=== PATIENT | female | born 1960 | race Caucasian/White ===

== ENCOUNTER → 2018-02-10 10:53 | Outpatient (CLI) | payer MEDICARE, MEDICAID, SELFPAY ==
[2018-02-10 11:19] LABS: Absolute Lymphocyte Count 1.66 X10^3/ul (0.83-4.51); Absolute Neutrophil Count 3.4 X10^3/uL (2.0-7.7); Basophil# 0.01 X10^3/uL; Basophil% 0.2 % (0-1); Eosinophil# 0.13 X10^3/uL; Eosinophils% 2.2 % (0-5); Hematocrit 41.6 % (37-47); Hemoglobin 14.4 g/dl (12.0-15.0); Lymphocyte # 1.66 X10^3/ul (4.0); Lymphocyte % 28.6 % (19-41); Mean Corp Hgb Conc 34.6 g/gl (32-36); Mean Corpuscular Hgb 30.8 pg (27.0-32.0); Mean Corpuscular Volume 89.1 fL (81-99); Mean Platelet Vol. 10.5 fl (6.2-12.0); Monocyte# 0.56 X10^3/uL; Monocyte% 9.7 % (0-10); Neutrophil # 3.43 X10^3/uL (2.7-7.7); Neutrophil % 59.1 % (47-70); Platelet Count 283 K/mm3 (150-450); RBC Distribution Width CV 13.6 % (11.6-14.6); Red Blood Count 4.67 M/mm3 (4.2-5.4); White Blood Count 5.8 K/mm3 (4.4-11.0)
[2018-02-10 11:20] LABS: POSITIVE COUNT NO; POSITIVE DIFFERENTIAL NO; POSITIVE MORPHOLOGY NO
[2018-02-10 11:51] LABS: Anion Gap 6 (5-15); BUN 13 mg/dL (7-18); BUN/Creat Ratio 18.4 RATIO (10-20); Calcium,Total 9.6 mg/dL (8.5-10.1); Chloride 104 mmol/L (98-107); Creatinine, Serum 0.71 mg/dL (0.55-1.02); EST Glomerular Filtration Rate 90 mL/min (>60); Est Glom Filt Rate - Afr Amer 109 mL/min (>60); Glucose 129 mg/dL (74-106); Potassium 4.2 mmol/L (3.5-5.1); Sodium Level 140 mmol/L (136-145); Thyroid Stim Hormone (TSH) 0.02 uIU/mL (0.358-3.74)
== END ==
PROVIDERS: Family Provider Family Medicine; PCP Family Medicine; Visit Provider Internal Medicine Cardiovascular Disease
DX: I42.8 Other cardiomyopathies (principal); I10 Essential (primary) hypertension
CPT/HCPCS: 36415; 80048; 84443; 85025

== ENCOUNTER → 2018-02-12 08:54 | Outpatient (CLI) | payer MEDICARE, MEDICAID, SELFPAY ==
--- NOTE | 2018-02-11 15:28 | ECHOCS_ITS ---
Version 2 Reason For Study: Dyspnea/SOB Procedure This was a 2D Doppler, Color Flow transthoracic echocardiogram. Exam performed in department. Left Ventricle Normal LV size. Left ventricular systolic function is normal. The estimated ejection fraction is 20 %. Transmitral diastolic flow velocities suggest severe (stage 3) diastolic dysfunction. There is severe global hypokinesis of the left ventricle. Right Ventricle Normal RV size. Normal systolic function. Atria Normal left atrium. Normal right atrium. Mitral Valve Mild diffuse mitral valve thickening. Mild (1+) eccentric mitral valve insufficiency. Tricuspid Valve Normal tricuspid valve. Mild tricuspid valve insufficiency. Aortic Valve Normal aortic valve. Trisinus/trileaflet aortic valve. Pulmonic Valve Normal pulmonic valve. Great Vessels Normal aortic root. The pulmonary artery is normal size. Normal inferior vena cava. Pericardium/Pleural No pericardial effusion. Medication Definity0.4ml given slow IV push to enhance endocardial definition. MMode/2D Measurements & Calculations LVIDd: 5.6 cm IVSd: 0.92 cm Ao root diam: 2.8 cm LVIDs: 5.2 cm LVPWd: 0.91 cm RVDd: 3.4 cm FS: 7.7 % LAV(MOD-bp): 52.0 ml LAV(MOD-bp) Indexed: 29.1 ml/m2 LA A4 area: 18.8 cm2 RA A4 area: 8.5 cm2 LAV(MOD-sp2): 50.3 ml LAV(MOD-sp4): 52.2 ml Doppler Measurements & Calculations MV E max lei: 68.8 cm/sec Lat Peak E' Lei: 7.0 cm/sec Med Peak E' Lei: 3.7 cm/sec MV A max lei: 39.7 cm/sec E/E' lat: 9.9 E/E' med: 18.4 MV E/A: 1.7 Ao V2 max: 102.9 cm/sec LV V1 max: 85.0 cm/sec PA V2 max: 73.8 cm/sec Ao max P.2 mmHg LV V1 max P.5 mmHg Ao V2 mean: 83.9 cm/sec Ao mean P.9 mmHg Ao V2 VTI: 20.0 cm TR max lei: 196.8 cm/sec TR max P.5 mmHg Interpretation Summary Normal LV size. Left ventricular systolic function is normal. The estimated ejection fraction is 20 %. Transmitral diastolic flow velocities suggest severe (stage 3) diastolic dysfunction Contrast injection was performed. Compared to prior study, there is no significant change. Ordering Physician: Babatunde Powers Referring Physician: Shashi Amaro Performed By: Laura Dominguez, RADHA, RVT
== END ==
PROVIDERS: Family Provider Family Medicine; PCP Family Medicine; Visit Provider Internal Medicine Cardiovascular Disease
DX: I95.9 Hypotension, unspecified (principal)
CPT/HCPCS: 93306; Q9957; A4216; C8929

== ENCOUNTER → 2018-03-16 09:43 | Outpatient (CLI) | payer MEDICARE, MEDICAID, SELFPAY ==
[2018-03-16 09:56] LABS: Mucous, Urine 0 SEEN /hpf (<or=2+)
[2018-03-16 11:24] LABS: Hematocrit 39.7 % (37-47); Hemoglobin 13.4 g/dl (12.0-15.0); Mean Corp Hgb Conc 33.8 g/gl (32-36); Mean Corpuscular Hgb 30.4 pg (27.0-32.0); Mean Platelet Vol. 10.7 fl (6.2-12.0); Platelet Count 248 K/mm3 (150-450); RBC Distribution Width CV 13.5 % (11.6-14.6); RBC Distribution Width SD 44.5 fl (35.1-43.9); Red Blood Count 4.41 M/mm3 (4.2-5.4); White Blood Count 5.6 K/mm3 (4.4-11.0)
[2018-03-16 11:26] LABS: Scan Indicated on CBC? Y/N NO
[2018-03-16 11:32] LABS: Color, Urine Yellow (Yellow); Glucose, Dipstick Normal (Normal); Ketone-Dipstick Negative (Negative); Leukocyte Esterase-Dipstick 25 /ul (Negative); Nitrite-Dipstick Negative (Negative); Occult Blood-Urine Negative /ul (Negative); Protein-Dipstick Negative (Negative); Specific Gravity, Urine 1.015 (1.002-1.030); Urine Bilirubin Dipstick Negative (Negative); Urine Clarity Sl. Cloudy (Clear); Urine Urobilinogen Normal (Normal)
[2018-03-16 11:35] LABS: Prothrombin Time (Protime)PT. 13.4 SECONDS (11.7-14.9)
[2018-03-16 11:44] LABS: Bacteria RARE /hpf (None Seen); Red Blood Cells-Urine 0-5 SEEN /hpf (0-5); Squamous Epithelial Cells - UA 0-5 SEEN /hpf (5-10); White Blood Cells 0-5 SEEN /hpf (0-5)
[2018-03-16 11:56] LABS: Anion Gap 8 (5-15); BUN 18 mg/dL (7-18); BUN/Creat Ratio 28.1 RATIO (10-20); Calcium,Total 9.3 mg/dL (8.5-10.1); Chloride 104 mmol/L (98-107); Creatinine, Serum 0.64 mg/dL (0.55-1.02); EST Glomerular Filtration Rate 100 mL/min (>60); Est Glom Filt Rate - Afr Amer 122 mL/min (>60); Glucose 97 mg/dL (74-106); Potassium 3.9 mmol/L (3.5-5.1); Sodium Level 143 mmol/L (136-145)
== END ==
PROVIDERS: Family Provider Family Medicine; PCP Family Medicine; Visit Provider Internal Medicine Cardiovascular Disease
DX: I44.7 Left bundle-branch block, unspecified (principal); I42.8 Other cardiomyopathies; I50.23 Acute on chronic systolic (congestive) heart failure; R57.0 Cardiogenic shock
CPT/HCPCS: 36415; 80048; 81001; 85027; 85610

== ENCOUNTER 2018-05-31 10:30 | Outpatient (RCR) | payer MEDICARE, MEDICAID, SELFPAY ==
--- NOTE | 2018-04-28 12:05 | HP.SP.AD_ITS ---
History - History Date of Eval: 04/27/18 Medical Diagnosis (from RX): LEFT VOCAL CORD PARALYSIS Date of Onset of Diagnosis: 2014 Previous speech therapy: No Other Relevant Medical History/Diagnoses/Surgery: Non- Hodgkins Lymphoma 2014 with 28 chemotherapy treatments, Pnuemonia November 2017, Heart failure and placement of CRD device. She has a medialization approximately one year ago for left vocal cord paralysis with good results. She then was intubated and now is hoarse again. Smoking Status: Never smoker Hx Smoking: No Hx Tobacco Use: No Hx Smoking Exposure: No - Pain Is pain an issue with your current prescribed condition?: No - Personal Occupation: Unemployed due to health Right Hearing Abillity: Normal Left Hearing Abillity: Normal Visual Assistive Devices: Glasses Patients Living Arrangements: Alone Patient Allergies - Allergies Allergies adhesive tape Allergy (Severe, Verified 02/10/18 09:25) Other leaves hernadez retirement, and pulls skin off. codeine Allergy (Verified 02/10/18 09:25) Hives latex Allergy (Verified 02/10/18 09:25) Rash Voice Handicap Index (VHI) - VHI VHI Administered: Yes VHI: Patient completed the Voice Handicap Index, which is a 30 item, self administered questionnaire that asks an individual to describe their voice and the effects of their voice on their life. Three subscales cover the areas of functional, emotional, and physical aspects of the voice disorders. Points from the questions can be combined to assign a total score, or they can be combined by subscale. Results for the VHI are as follows: Date: 04/28/18 - VHI Test Functional: Candy had a total score of 37 which is severe. She has limited use of her voice through the phone and stated that she has to text to communicate. She is unable to use a drive through. Physical: Candy had a total score of 33 which places her in the severe range. She has a difficult time moderating her air flow to produce a good sound. Her voice varies throughout the day as well as as each day can vary. She often has to strain to be heard and this puts extra stress on her vocal cords. Emotional: Candy spends most of her days quiet as she lives alone and currently is not working due to illness. She stated that her voice is a problem as she is not able to communicate with family and friends which creates increased isolation. Total Severity Rating: Severe (61-120) Subjective Clinical Impression - Adult Clinical Impression Hoarseness: excessive 'noise' in the signal creating an unpleasant, rough vocal quality: Present Harshness: irregular vocal fold vibrations creating a 'raspy' or unmusical tone ; a combination of hoarseness and breathiness: Present - Non-Phonatory Behaviors/Respiration Reduced loudness or vocal weakness: Present Limited breath support for speech: Present Objective Voice - Objective data Objective Data: Objective data: Sound pressure level (SPL acoustic correlation of vocal loudness) was measured with a sound level meter at a distance of 40 cm from the patient's mouth. Average conversational loudness is 70-80 dB and sustained phonation duration is 15 to 20 seconds for a typical adult. Vocal Intensity at Conversational Level (dB SPL): 58.5 Plan - Plan Plan: Speech therapy is warranted for a severe voice disorder characterized by harshness and decreased communication. - Recommendations Treatment Warranted: Yes - Frequency Frequency: 1x/Week Visits in this POC: 8 - Prognosis Prognosis: Fair - Goals that are Established: Determination:: Goals will be added/modified as deemed necessary and appropriate. Therapy will be discontinued when results of re-evaluation indicate therapy is no longer needed or lack of progress has been documented. - Goal #1-5 Goal #1: Candy will complete vocal cord adduction exercises independently on 4/ 5 trials on 4 consecutive sessions. Goal #2: Candy will sustain phonation for 8-10 seconds on 4/5 trials on 4 consecutive sessions to allow for increased respiratory support during speaking. Education - Patient has Indicated that the Following Identified Educational Needs: None The Patient has indicated that they have no educational or learning abilities that may effect their care.: Yes - Patient Instruction Patient Education: Diagnosis, Treatment Plan Person Taught: Patient Teaching Method: Discussion Response to teaching: Verbalize understanding
--- NOTE | 2018-07-20 08:36 | HP.SP.DC_ITS ---
ST Discharge Summary - Discharged: Discharge: Candy Mancera was discharged from [facility] speech therapy on 05-31-18. She was discharged due to lack of progress on her goals. She was able to independently complete vocal cord adduction exercises however they did not make a change in her functional vocal quality. Candy was not able sustain phonation for 8-10 seconds for her second goal. She did not progress past 4 seconds. Candy was accepting of discharge as she felt she made no progress also. A copy of this discharge will be sent to her referring physician.
== END 2018-05-31 19:00 | disposition home or self-care (01) ==
LOC: SP 10:30
PROVIDERS: Family Provider Family Medicine; PCP Family Medicine
DX: R49.0 Dysphonia (principal); J38.01 Paralysis of vocal cords and larynx, unilateral
CPT/HCPCS: 92507; 92524

== ENCOUNTER → 2018-08-30 10:00 | Outpatient (CLI) | payer MEDICARE, MEDICAID, SELFPAY ==
[2018-08-26 09:19] VITALS: BMI 29.9
--- NOTE | 2018-08-30 10:07 | ECHODONC_ITS ---
Reason For Study: SOB Procedure This was a 2D Doppler, Color Flow transthoracic echocardiogram. Myocardial strain analysis was performed in this exam to aid in the assessment of cardiac function. Exam performed in department. Left Ventricle Normal LV size. The estimated ejection fraction is 45 %. The global longitudinal strain is moderately abnormal. The global longitudinal strain = -12.4% (abnormal). No regional wall motion abnormalities noted. Right Ventricle Normal RV size. ICD or pacer leads identified within the right ventricle. Normal systolic function. Atria Normal left atrium. Normal right atrium. Mitral Valve Normal mitral valve. Tricuspid Valve Normal tricuspid valve. Mild tricuspid valve insufficiency. Pulmonary artery systolic pressure is 26 mmHg. Aortic Valve Normal aortic valve. Trisinus/trileaflet aortic valve. Pulmonic Valve Normal pulmonic valve. Great Vessels Normal aortic root. The pulmonary artery is normal size. Normal inferior vena cava. Pericardium/Pleural No pericardial effusion. MMode/2D Measurements & Calculations LVIDd: 4.8 cm IVSd: 0.94 cm Ao root diam: 2.7 cm LVIDs: 3.9 cm LVPWd: 0.86 cm RVDd: 2.7 cm FS: 19.5 % LAV(MOD-bp): 38.0 ml EDV(MOD-sp4): 92.4 ml EDV(MOD-sp2): 78.6 ml LAV(MOD-bp) Indexed: 21.8 ml/m2 ESV(MOD-sp4): 50.3 ml EF(MOD-sp2): 42.1 % LAV(MOD-sp2): 40.4 ml EF(MOD-sp4): 45.5 % LAV(MOD-sp4): 33.3 ml SV(MOD-sp4): 42.1 ml SV(MOD-sp2): 33.1 ml LA A4 area: 13.1 cm2 LA dimension(2D): 3.8 cm RA A4 area: 9.4 cm2 Doppler Measurements & Calculations MV E max lei: 49.6 cm/sec Lat Peak E' Lei: 3.2 cm/sec Med Peak E' Lei: 3.2 cm/sec MV A max lei: 63.8 cm/sec E/E' lat: 15.3 E/E' med: 15.6 MV E/A: 0.78 Ao V2 max: 124.5 cm/sec LV V1 max: 98.3 cm/sec PA V2 max: 98.0 cm/sec Ao max P.2 mmHg LV V1 max P.9 mmHg TR max lei: 235.3 cm/sec TR max P.3 mmHg Interpretation Summary Normal LV size. The estimated ejection fraction is 45 %. The global longitudinal strain is moderately abnormal. The global longitudinal strain = -12.4% (abnormal). Pulmonary artery systolic pressure is 26 mmHg. Compared to previous study, the left ventricular systolic function has improved.. Ordering Physician: Babatunde Powers Referring Physician: Papi Amaro M.D. Performed By: Zaida Moore RDCS
--- NOTE | 2018-08-30 11:00 | RAD_ITS ---
STUDY: X-RAY - LEFT RADIUS AND ULNA REASON FOR EXAM: Female, 58 years old. Left forearm pain TECHNIQUE: 2 view(s) of the forearm. COMPARISON: None. FINDINGS: There is no demonstrated soft tissue swelling. Normal visualized radius. Normal visualized ulna. Scaphotrapezial osteoarthritis. RAD/Forearm 2 Views IMPRESSION: No acute osseous abnormality is evident involving the forearm. Electronically Signed: Wilder Orr MD at 11:32 EST Tel , Service support ,
== END ==
PROVIDERS: Family Provider Family Medicine; PCP Family Medicine; Referring Provider Internal Medicine Cardiovascular Disease; Visit Provider Internal Medicine Cardiovascular Disease
DX: R06.00 Dyspnea, unspecified (principal); R06.02 Shortness of breath; I42.8 Other cardiomyopathies; Z85.79 Personal history of other malignant neoplasms of lymphoid, hematopoietic and related tissues
CPT/HCPCS: 0399T; 73090; 93306

== ENCOUNTER → 2018-11-18 11:13 | Outpatient (CLI) | payer MEDICARE, MEDICAID, SELFPAY ==
[2018-11-18 10:44] VITALS: BMI 30.3
[2018-11-18 12:38] LABS: ALB/GLOB Ratio 1.2 RATIO (0.9-2.4); AST(SGOT) 24 U/L (15-37); Alanine Aminotransfer ALT/SGPT 40 U/L (13-56); Alkaline Phosphatase 65 U/L (45-117); Anion Gap 7 (5-15); BUN 14 mg/dL (7-18); BUN/Creat Ratio 19.7 RATIO (10-20); Calcium,Total 9.5 mg/dL (8.5-10.1); Chloride 103 mmol/L (98-107); Creatinine, Serum 0.71 mg/dL (0.55-1.02); EST Glomerular Filtration Rate 89 mL/min (>60); Est Glom Filt Rate - Afr Amer 107 mL/min (>60); Globulin 3.4 g/dL (2.2-4.2); Glucose 100 mg/dL (74-106); Potassium 4.3 mmol/L (3.5-5.1); Protein, Total 7.4 g/dL (6.4-8.2); Sodium Level 140 mmol/L (136-145); Thyroid Stim Hormone (TSH) 0.01 uIU/mL (0.358-3.74)
== END ==
PROVIDERS: Family Provider Family Medicine; PCP Family Medicine; Visit Provider Family Medicine
DX: I10 Essential (primary) hypertension (principal); F41.1 Generalized anxiety disorder
CPT/HCPCS: 36415; 80053; 84443

== ENCOUNTER 2019-06-24 08:14 | Day surgery (SDC) | payer MEDICARE, MEDICAID, SELFPAY ==
[2019-05-31 14:30] VITALS: BMI 30.7
--- NOTE | 2019-06-23 23:07 | PCM.HP.BLA ---
History and Physical Date of Admission: 06/24/19 HISTORY OF PRESENT ILLNESS 59 year old woman presents with a soft tissue mass left lateral forehead by eyebrow that has increased in size over the last several months. She denies trauma. She denies recent infection. She has some discomfort when the mass is bumped. She complains of intermittent headaches since the mass started enlarging. She presents at this time for further evaluation and treatment. PAST MEDICAL HISTORY Left bundle branch block Obesity (BMI 30.0-34.9) Cardiogenic shock Acute on chronic systolic (congestive) heart failure Non-ischemic cardiomyopathy Hypertension Anxiety and depression Frequent headaches History of allergic urticaria History of breast lump History of cancer History of pneumonia Kidney failure Neuropathy Thyroid disease Chronic bronchitis GERD (gastroesophageal reflux disease) Hypothyroidism IBS (irritable bowel syndrome) Non-Hodgkin lymphoma PAST SURGICAL HISTORY Presence of biventricular implantable cardioverter-defibrillator (ICD) reversal of tubal ligation Bilateral cataracts left breast biopsy lymph node biopsy tubal ligation Paralyzed vocal cords ALLERGIES adhesive tape nickel codeine latex MEDICATIONS Multivitamins,Ther W-Minerals [Multivitamin With Minerals] albuterol sulfate albuterol sulfate HFA 90 mcg/actuation aerosol inhaler acetaminophen ER magnesium baclofen mecobalamin (vitamin B12) pyridoxine (vitamin B6) nitroglycerin levothyroxine pantoprazole amitriptyline sacubitril 24 mg-valsartan 26 mg lorazepam ondansetron carvedilol furosemide spironolactone polyethylene glycol FAMILY HISTORY Grandfather - Myocardial infarction Mother - Cancer, Hypertension, Ovarian cancer SOCIAL HISTORY Smoking Status: Never smoker alcohol intake: never substance use type: does not use REVIEW OF SYSTEMS General - Denies fever and weight loss. Has fatigue. Eyes - Denies cataracts. Has glaucoma. ENT - Denies nasal congestion and sore throat. Endocrine - Denies excessive thirst and urination. Has thyroid disease. Has heat and cold intolerance. Skin - Denies skin cancer. Has enlarging soft tissue mass left lateral forehead by eyebrow. Musculoskeletal - Has joint pain, joint stiffness, and back pain. Denies weakness of muscles and joints and arthritis. Neuro - Has headaches. Cardiovascular - Has chest pain and fatigue. Denies shortness of breath with exertion. Has pacemaker. Psych - Denies anxiety and depression. Respiratory - Denies chronic cough. Has shortness of breath. Gastrointestinal - Denies nausea, vomiting, diarrhea. Has constipation. Hematologic - Denies abnormal bruising and bleeding. Genitourinary - Denies hematuria. Has urinary frequency. PHYSICAL EXAMINATION General - Alert and Oriented. HEENT - PERRL. EOMI. Throat is clear. On the left lateral forehead by eyebrow is a soft tissue mass that measures 2 cm. It is mobile. No adherence to the overlying skin. He can raise his eyebrows symmetrically. No ulceration. Slight discomfort when palpated. No evidence of infection. Neck - Supple and nontender. No cervical adenopathy. No suspicious lesions noted. Lungs - Clear to auscultation. Heart - Regular rate and rhythm. Abdomen - Soft and nondistended. Extremities - FROM. No axillary adenopathy. Radial pulses are palpable. No suspicious lesions noted. Neuro - CN II-XII grossly intact. Psych - Normal mood and affect. ASSESSMENT 2 cm painful soft tissue mass left lateral forehead by eyebrow. PLAN Recommend excision of this painful soft tissue mass left lateral forehead by eyebrow and send it to Pathology for analysis to rule out carcinoma. Usually these soft tissue masses are submuscular in location. May need additional pain medication postop because of bruising on the muscle. Will apply a compression dressing to minimize bleeding issues postop. Surgery will be done on an outpatient basis under local anesthesia and IV sedation. Patient was informed of the risks and complications of the procedure including alternatives to surgery. These were discussed with the patient personally. Patient voices understanding and wishes to proceed. Some of the risks and complications were included in a form from the [employer].
[2019-06-24] VITALS (7 sets, daily range): BP systolic 91–116; BP diastolic 37–76; PULSE 68–94; RESP 16; TEMP 36.2–36.6; O2SAT 96–98; BMI 31.1
--- NOTE | 2019-06-24 | IMM_PTH ---
PATIENT: MIKKI MYLES [place]: [facility] [place][id number] AGE/SX: 59/F ROOM: RE06/24/[address]: Dr. Randal Underwood MD : 1960 BED: DIS: 06/24/2019 SPEC #: [id number] RECD: 06/27/19 13:02 STATUS: JERRY REQ #: [id number] SHAD: 06/24/19 00:[address]: Randal Underwood DEPT: IMMUNOHISTOCHEMISTRY RECD BY: Cat Gates ENTERED: 06/27/19 13:03 SP TYPE: IMMUNO OTHR DR: Dr. Shashi Amaro, DO Tissues: Skin of forehead Procedures: BCL-2 (add) BCL-6 (add) CD10 (add) CD138 (add) CD15 (add) CD20 (add) CD23 (add) CD3 (add) CD30 (add) CD43 (add) CD45 (add) CD5 (add) CD79A (add) CYCLIN (add) KAPPA (add) LAMBDA (add) MUM1 (add) C-MYC (add) Pankeratin (initial) PHYSICIAN & [place] [id number] SPECIMEN INFORMATION: Tissue Source: Soft tissue mass, left lateral forehead, excisional biopsy Clinical Info: Soft tissue mass, left lateral forehead Specimen Number: [id number] #2 CPT code: 90886, 93613 x18 METHODOLOGY: Deparaffinized sections of prefer/formalin-fixed tissue or PAP/DQ stained slides are incubated with monoclonal/polyclonal antibodies/oligonucleotide probes. Localization is made via biotin free immunoperoxidase method. Appropriate controls are performed and reacted as expected. Results on target cell population are indicated in the following table: RESULTS: ANTIBODY / CLONE RESULT Block 2 AE1-3 (AE1/AE3/PCK26) negative CD3 (PS1) negative CD5 (SP10) negative CD10 (56C6) positive CD15 (MMA) negative CD20 (L26) positive CD23 (1B12) negative CD30 (Mayur-H2) negative CD43 (L60) negative CD45 (RP2/18) positive CD79a (11E3) positive CD138 (B-A38) negative BCL-2 (bcl-2/100/D5) positive BCL-6 (KM300V/A8) positive [place] D1/BCL-1 (SP4) negative [place] (polyclonal) negative Lambda (polyclonal) negative MUM1 (MRQ-43) positive, <50% C-MYC (Y69) negative These tests were developed and their performance characteristics determined by [facility]. They may not have been cleared or approved by the U.S. Food and Drug Administration. The FDA has determined that such clearance or approval is not necessary. The above immunohistochemical/dualISH markers are ordered and reviewed by the Pathologist. INTERPRETATION: Soft tissue mass, left lateral forehead, excisional biopsy: Consistent with B-cell lymphoma, of germinal center origin, grade 1. Comment: Case has been reviewed in consultation with Dr. March who concurs with the above diagnosis. IDC:[email or web address] AM:alexa 06/29/19
--- NOTE | 2019-06-24 09:25 | MASS_PTH ---
PATIENT: MIKKI MYLES LOC: [facility] – [place] U#:[id number] AGE/SX: 59/F ROOM: RE06/24/[address]: Dr. Randal Underwood MD : 1960 BED: DIS: 06/24/2019 SPEC #: [id number] RECD: 06/24/19 10:50 STATUS: JERRY REErica #: [id number] SHAD: 06/24/19 09:[address]: Randal Underwood DEPT: SURGICAL PATHOLOGY RECD BY: Rafael Angelo ENTERED: 06/24/19 11:32 SP TYPE: Mass OTHR DR: Dr. Shashi Amaro, DO Tissues: Eyebrow Procedures: Surgery Specimen Level IV HEADER OPERATION: Excision painful tissue mass, forehead by eyebrow PRE-OP DIAGNOSIS: 2 mm painful soft tissue mass left lateral forehead by eyebrow TISSUE SUBMITTED: Soft tissue mass left lateral forehead by eyebrow MICROSCOPIC DIAGNOSIS Soft tissue mass, left lateral forehead, excision: B-cell lymphoma of germinal center origin, grade 1. See comment. AM:alexa 06/27/19 COMMENT Immunohistochemistry ([id number]) supports the above diagnosis. A definitive lymph node is not appreciated. The lesion may represent extra nereida disease. Clinical correlation is suggested. Reference is made to the patient's cervical lymph node biopsy from 2014 ([id number]) in which B-cell lymphoma, follicular lymphoma, grade 1 was identified. Case has been reviewed in consultation with Dr. March who concurs with the above diagnosis. IDC:[email or web address] MICROSCOPIC DESCRIPTION Slides are reviewed. GROSS DESCRIPTION Received in fixative is one container labeled with the patient's name and designated Soft tissue mass left lateral forehead by eyebrow. The specimen consists of a piece of seaman-pink soft tissue measuring 2.2 x 2 x 0.7 cm. The specimen is previously partially bisected. The specimen is inked, serially sectioned and submitted entirely in two cassettes. / WENDY:alexa 06/24/19 TC:0 CPT: 31411
[2019-06-24] MEDS: Mupirocin Ointment 22gm Tube 1 APPLIC (09:57)
--- NOTE | 2019-06-24 10:13 | PCM.OPRPT ---
Report of Operation Date of Procedure: 06/24/19 Pre-Operative Diagnosis: 2 cm painful soft tissue mass left lateral forehead by eyebrow. Post-Operative Diagnosis: 2 cm painful submuscular soft tissue mass left lateral forehead by eyebrow. Surgery/Procedure Performed:: Excision 2 cm painful submuscular soft tissue mass left lateral forehead by eyebrow with 2.5 cm complex closure repair. Description of Surgical Findings:: 59 year old woman presents with a soft tissue mass left lateral forehead by eyebrow that has increased in size over the last several months. She denies trauma. She denies recent infection. She has some discomfort when the mass is bumped. She complains of intermittent headaches since the mass started enlarging. Patient was informed of the risks and complications of the procedure including alternatives to surgery. These were discussed with the patient personally. Patient voices understanding and wishes to proceed. Some of the risks and complications were included in a form from the [employer]. 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 Specimen's removed: Painful submuscular soft tissue mass left lateral forehead by eyebrow to Pathology. Drains: None. Estimated Blood Loss (mL): 20 ml. Description of Procedure: Patient was taken to OR in supine position and was given IV sedation. The face was prepped and draped in the usual fashion. SCD's were placed for DVT prophylaxis. Perioperative antibiotics were given intravenously. The painful soft tissue mass lateral forehead by eyebrow.was infiltrated with xylocaine and epinephrine. After waiting 5 minutes for the anesthetic to take effect, a horizontal incision was made at the superior aspect of the eyebrow. Dissection was carried into the subcutaneous tissue. The frontalis muscle was seen. The soft tissue mass was submuscular. I the muscle vertically to get exposure to the soft tissue mass. It was sharply debrided and excised. It was loosely adherent to the underlying skull but not involving the skull. After excision, the mass was sent to Pathology for analysis to rule out carcinoma. The wound was irrigated with saline. Hemostasis was obtained with electrocautery. The wound was closed in a complex fashion with 5-0 Monocryl figure of eight interrupted sutures for the underlying muscle. The deep dermis and subcutaneous tissue was approximated with 5-0 Monocryl interrupted sutures. The skin was approximated with 5-0 Prolene simple interrupted sutures. Antibiotic ointment was applied to the suture line followed by a gauze compression dressing. Patient tolerated the procedure well and was sent to PACU in satisfactory condition. Patient will be sent home on antibiotics and pain medication. She will keep her head elevated during the initial postop period. Patient will followup in a week for a wound check and for discussion of the pathology report and for removal of the sutures. It will be discussed with the patient that the muscle was stretched out and may develop scarring that can affect the elevation of the eyebrow. Also postop swelling can affect the temporal branch of the facial nerve. If she develops ptosis in the postoperative period that affects her vision, can proceed with a direct excision brow lift on the left. Grafts/Implants Used: None. - Complications None. - Admit VTE Documentation VTE Present on Admission: No VTE Mechan Device Prophylaxis: SCD's VTE Pharm Prophylaxis ordered?: No Code Visit Surgery Charges CPT - 67607 ICD-10 - R22.0, R20.8 96044 R22.0, R20.8
--- NOTE | 2019-06-24 10:24 | DCINST_ITS ---
You will use the following diet at home:: No restrictions Discharge Activity: May not drive while taking narcotic pain medications., May Shower - in two days., - - keep head elevated. no heavy lifting. May shower in (days): 2 May resume sexual activity in: No Restrictions Ice area for (Minutes): 5 - as needed for facial swelling. Weight Bearing Status: Weight bearing as tolerated Lifting Restrictions: 10 lbs. Keep extremity elevated above heart level: - - keep head elevated. Call your doctor if your incision/area has: Continuous Slow Oozing, Sudden Increased Bleeding, Increased Pain/ Swelling, Increased Redness, Foul Smelling Discharge, Swelling at the incision site Call your doctor if you observe: Fever of 101 or Higher, Coldness, Increased Pain, Shortness of breath, Chest pain, Calf discomfort, Uncontrolled pain Suture Line Care: - - after dressing removed, apply antibiotic ointment to suture line daily. Change Dressing in (Days):: 2 - antibiotic ointment daily. Cleanse incision/area with: - - may get incision wet in the shower in two days. 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 nickel Allergy (Severe, Verified 06/24/19 08:42) Rash codeine Allergy (Verified 06/24/19 08:42) Hives latex Allergy (Verified 06/24/19 08:42) Rash Medications to take at Discharge Multivitamins,Ther W-Minerals [Multivitamin With Minerals] 1 tab PO DAILY 11/30/14 albuterol sulfate 1.25 mg/3 mL solution for nebulization 1.25 mg INHALATION Q4H PRN 12/29/17 albuterol sulfate HFA 90 mcg/actuation aerosol inhaler 1 puff INHALATION Q6H PRN #18 g 12/29/17 acetaminophen ER 650 mg tablet,extended release 650 mg PO ONCE PRN 02/10/18 magnesium 250 mg tablet 250 mg PO QDAY 02/10/18 baclofen 10 mg tablet 20 mg PO QHS tab 03/26/18 mecobalamin (vitamin B12) 1,000 mcg disintegrating tablet,sublingual 1,000 mcg SUBLINGUAL QDAY #90 tab 03/26/18 pyridoxine (vitamin B6) 100 mg tablet 100 mg PO QDAY #90 tab 03/26/18 nitroglycerin 0.4 mg sublingual tablet 0.4 mg SUBLINGUAL Q5-15M PRN 05/27/18 levothyroxine 100 mcg tablet 100 mcg PO DAILY #90 tab 11/18/18 pantoprazole 40 mg tablet,delayed release 40 mg PO BID #60 tab 12/21/18 amitriptyline 50 mg tablet 50 mg PO DAILY #90 tab 12/22/18 sacubitril 24 mg-valsartan 26 mg tablet 1 tab PO BID #180 tab 01/26/19 ondansetron HCl 8 mg tablet 8 mg PO TID 02/16/19 carvedilol 12.5 mg tablet 12.5 mg PO BID #180 tab 03/09/19 furosemide 20 mg tablet 20 mg PO QDAY #90 tab 03/09/19 spironolactone 25 mg tablet 12.5 mg PO .Three times a week #45 tab 03/09/19 polyethylene glycol 3350 17 gram/dose oral powder 8.5 g PO DAILY 04/22/19 lorazepam 1 mg tablet 1 mg PO Q6H #120 tab 05/19/19 diclofenac 1 % topical gel 2 g TOPICAL BID #100 g 05/24/19 Clindamycin HCl [Cleocin] 300 mg PO TID #12 cap 06/24/19 Lactobacillus Acidophilus/Fos [Acidophilus Probiotic Tablet] 1 ea PO BID #10 tab 06/24/19 Oxycodone HCl/Acetaminophen [Percocet 5/325] 1 tab PO Q6H PRN PRN 7 Days #40 tab 06/24/19 The following prescriptions were given: Lactobacillus Acidophilus/Fos [Acidophilus Probiotic Tablet] 1 ea PO BID #10 tab Prescription Printed Clindamycin HCl [Cleocin] 300 mg PO TID #12 cap Prescription Printed Oxycodone HCl/Acetaminophen [Percocet 5/325] 1 tab PO Q6H PRN PRN 7 Days #40 tab PRN Reason: Pain Score 4-5/10 Prescription Printed Primary Care Physician: Shashi Amaro DO [Primary Care Provider] - Test Results: Test results from this visit will be discussed in further detail at your follow- up appointment, if applicable. Please Follow Up With: Randal Underwood MD When: one week. call [phone] for appt. Proposed Discharge Date: 06/24/19
[2019-06-24] MEDS: Lactated Ringers 1,000 ML 100 ML IV (10:27)
== END 2019-06-24 11:25 | disposition home or self-care (01) ==
LOC: SDC 08:14 → AC 08:16
PROVIDERS: Family Provider Family Medicine; PCP Family Medicine; Referring Provider Surgery; Visit Provider Surgery
PROC: (CPT 13131; principal; 2019-06-24 09:10)
DX: C85.11 Unspecified B-cell lymphoma, lymph nodes of head, face, and neck (principal); E66.9 Obesity, unspecified; I11.0 Hypertensive heart disease with heart failure; I50.23 Acute on chronic systolic (congestive) heart failure; I44.7 Left bundle-branch block, unspecified; I42.8 Other cardiomyopathies; F41.9 Anxiety disorder, unspecified; F32.9 Major depressive disorder, single episode, unspecified; G62.9 Polyneuropathy, unspecified; K21.9 Gastro-esophageal reflux disease without esophagitis; E03.9 Hypothyroidism, unspecified; K58.9 Irritable bowel syndrome, unspecified; Z85.72 Personal history of non-Hodgkin lymphomas; Z87.01 Personal history of pneumonia (recurrent); Z95.810 Presence of automatic (implantable) cardiac defibrillator; Z79.899 Other long term (current) drug therapy
CPT/HCPCS: 13131; 21014; 88305; 88341; 88342; J7120; J2405

== ENCOUNTER → 2019-12-28 14:17 | Outpatient (CLI) | payer MEDICARE, MEDICAID, SELFPAY ==
[2019-12-28 13:23] VITALS: BMI 30.5
--- NOTE | 2019-12-28 14:25 | RAD_ITS ---
STUDY: X-RAY CHEST REASON FOR EXAM: Female, 59 years old. PRODUCTIVE COUGH. CHEST TIGHTNESS HX OF PARALYZED VOCAL CORDS SINCE 2015 WITH 3 SURGERYS SINCE THEN ON VOCAL CORDS. PACEMAKER INSERTION 2 YEARS AGO. TECHNIQUE: PA and lateral views of the chest. COMPARISON: None. FINDINGS: A right-sided PICC line catheter is seen with the tip in the distal portion of the superior vena cava. The lungs are clear and expanded. There is no demonstrated pleural abnormality. Normal size heart. A left-sided ICD is seen. Normal mediastinum and viraj. Normal visualized pulmonary arteries. There is atherosclerotic tortuosity of the aortic arch and descending thoracic aorta. There are degenerative changes of the visualized thoracic spine. Normal visualized ribs, clavicles, and shoulders. There is no demonstrated abnormality of the visualized soft tissue structures of the upper abdomen. RAD/Chest PA and Lateral IMPRESSION: No acute abnormalities present. Electronically Signed: Alberto Lopez, at 14:46 EDT , Service support ,
== END ==
PROVIDERS: PCP Family Medicine; Visit Provider Family Medicine
DX: J42 Unspecified chronic bronchitis (principal)
CPT/HCPCS: 71046

== ENCOUNTER → 2020-03-05 09:00 | Outpatient (CLI) | payer MEDICARE, MEDICAID, SELFPAY ==
[2020-01-26 14:21] VITALS: BMI 30.3
== END ==
PROVIDERS: Anesthesiology; PCP Family Medicine; Referring Provider Surgery; Visit Provider Surgery
DX: Z11.59 Encounter for screening for other viral diseases (principal)
CPT/HCPCS: 87635; G2023; U0003

== ENCOUNTER → 2020-03-09 10:34 | Outpatient (CLI) | payer MEDICARE, MEDICAID, SELFPAY ==
[2020-03-09 09:39] VITALS: BMI 30.3
[2020-03-09 12:27] LABS: Absolute Lymphocyte Count 0.73 X10^3/uL (0.83-4.51); Absolute Neutrophil Count 1.2 X10^3/uL (2.0-7.7); Basophil# 0.02 X10^3/uL; Basophil% 0.7 % (0-1); Eosinophil# 0.19 X10^3/uL; Eosinophils% 6.5 % (0-5); Hematocrit 36.5 % (37-47); Hemoglobin 12.5 g/dL (12.0-15.0); Lymphocyte # 0.73 X10^3/ul (4.0); Mean Corp Hgb Conc 34.2 g/dL (32-36); Mean Corpuscular Hgb 32.6 pg (27.0-32.0); Mean Corpuscular Volume 95.1 fL (81-99); Mean Platelet Vol. 9.6 fl (6.2-12.0); Monocyte# 0.74 X10^3/uL; Monocyte% 25.3 % (0-10); NRBC Flagged by Analyzer 0 % (0-5); Neutrophil # 1.24 X10^3/uL (2.7-7.7); Neutrophil % 42.5 % (47-70); Platelet Count 225 K/mm3 (150-450); RBC Distribution Width CV 14.2 % (11.6-14.6); RBC Distribution Width SD 48.5 fl (35.1-43.9); Red Blood Count 3.84 M/mm3 (4.2-5.4); White Blood Count 2.9 K/mm3 (4.4-11.0)
== END ==
PROVIDERS: PCP Family Medicine; Referring Provider Family Medicine; Visit Provider Family Medicine
DX: H53.40 Unspecified visual field defects (principal)
CPT/HCPCS: 36415; 85025

== ENCOUNTER → 2020-03-19 12:35 | Outpatient (CLI) | payer MEDICARE, SELFPAY ==
[2020-03-09 14:24] VITALS: BMI 31.6
--- NOTE | 2020-03-19 12:36 | ECHODONC_ITS ---
Reason For Study: DYSPNEA/SOB Procedure This was a 2D Doppler, Color Flow transthoracic echocardiogram. Myocardial strain analysis was performed in this exam to aid in the assessment of cardiac function. Exam performed in department. Left Ventricle Normal LV size. The estimated ejection fraction is 45 %. Stage 1 diastolic dysfunction. There is mild global hypokinesis of the left ventricle. Right Ventricle Normal RV size. Normal systolic function. Atria Normal left atrium. Normal right atrium. Mitral Valve Normal mitral valve. Tricuspid Valve Normal tricuspid valve. Mild (1+) tricuspid valve insufficiency. Pulmonary artery systolic pressure is 27 mmHg. Aortic Valve Trisinus/trileaflet aortic valve. Great Vessels Normal aortic root. The pulmonary artery is normal size. Pericardium/Pleural No pericardial effusion. MMode/2D Measurements & Calculations LVIDd: 5.2 cm IVSd: 0.78 cm Ao root diam: 2.6 cm LVIDs: 3.9 cm LVPWd: 0.93 cm RVDd: 2.8 cm FS: 24.5 % LAV(MOD-bp): 43.6 ml LVAd ap4: 25.9 cm2 SV(MOD-sp4): 37.0 ml LAV(MOD-bp) Indexed: 24.5 ml/m2 EDV(MOD-sp4): 77.1 ml LAV(MOD-sp2): 43.3 ml EDV(sp4-el): 81.4 ml LAV(MOD-sp4): 44.4 ml LVAs ap4: 16.8 cm2 ESV(MOD-sp4): 40.1 ml ESV(sp4-el): 39.5 ml EF(MOD-sp4): 47.9 % EF(sp4-el): 51.5 % SV(sp4-el): 41.9 ml LA dimension(2D): 3.5 cm LA A4 area: 16.0 cm2 RA A4 area: 9.9 cm2 Time Measurements MV dec time: 0.22 sec Doppler Measurements & Calculations MV E max lei: 49.9 cm/sec Lat Peak E' Lei: 4.8 cm/sec Med Peak E' Lei: 4.8 cm/sec MV A max lei: 64.9 cm/sec E/E' lat: 10.3 E/E' med: 10.3 MV E/A: 0.77 Ao V2 max: 114.4 cm/sec LV V1 max: 100.1 cm/sec PA V2 max: 88.2 cm/sec Ao max P.2 mmHg LV V1 max P.0 mmHg TR max lei: 260.9 cm/sec TR max P.2 mmHg Interpretation Summary Normal LV size. The estimated ejection fraction is 45 %. Stage 1 diastolic dysfunction. Pulmonary artery systolic pressure is 27 mmHg. The global longitudinal strain = -13.8% (abnormal). Compared to previous study, the left ventricular systolic function is the same.. Ordering Physician: Babatunde Powers Referring Physician: Shashi Amaro Performed By: Ashtyn Farley, RADHA, RVT
== END ==
PROVIDERS: PCP Family Medicine; Referring Provider Internal Medicine Cardiovascular Disease; Visit Provider Internal Medicine Cardiovascular Disease
DX: I34.0 Nonrheumatic mitral (valve) insufficiency (principal); R06.00 Dyspnea, unspecified; R06.02 Shortness of breath
CPT/HCPCS: 93306; 93356

== ENCOUNTER 2020-04-17 06:01 | Day surgery (SDC) | payer MEDICARE, MEDICAID, SELFPAY ==
[2020-03-09 14:24] VITALS: BMI 31.6
--- NOTE | 2020-04-16 17:55 | PCM.HP.BLA ---
History and Physical Date of Admission: 04/17/20 HISTORY OF PRESENT ILLNESS 60 year old woman presents with persistent left eyebrow ptosis after excision of lymphoma mass on 06/24/19. She states she is having difficulties with lateral field of vision defect. She also experiences occasional zingers in the area of the surgery that occurs at night that can wake her up. She has finished her IV chemotherapy. She states she is on maintenance IV chemotherapy for the next 2 years. She presents at this time for further evaluation and treatment. PAST MEDICAL HISTORY Visual field defect of left eye Brow ptosis, left Non-ischemic cardiomyopathy Left bundle branch block Acute on chronic systolic (congestive) heart failure Essential (primary) hypertension B-cell lymphoma Anxiety and depression Frequent headaches History of allergic urticaria History of breast lump History of cancer Kidney failure Neuropathy Thyroid disease Anxiety disorder B-cell lymphoma of extranodal site Brow ptosis, left Chronic bronchitis Dysesthesia of face Facial mass Facial nerve paresis GERD (gastroesophageal reflux disease) Hypothyroidism IBS (irritable bowel syndrome) Non-Hodgkin lymphoma Obesity (BMI 30.0-34.9) Cardiogenic shock Disorder of electrolytes History of pneumonia PAST SURGICAL HISTORY Excision 2 cm painful submuscular soft tissue mass left lateral forehead by eyebrow with 2.5 cm complex closure repair - 06/24/19 biventricular implantable cardioverter-defibrillator (ICD) reversal of tubal ligation Bilateral cataracts excision of lesion left breast biopsy lymph node biopsy tubal ligation Paralyzed vocal cords ALLERGIES adhesive tape nickel codeine latex MEDICATIONS Multivitamins,Ther W-Minerals [Multivitamin With Minerals (BKC)] albuterol sulfate solution for nebulization acetaminophen magnesium baclofen mecobalamin (vitamin B12) pyridoxine (vitamin B6) nitroglycerin pantoprazole 40 mg ondansetron HCl spironolactone polyethylene glycol diclofenac sodium levothyroxine pegfilgrastim albuterol sulfate /actuation aerosol inhaler carvedilol furosemide amitriptyline benzonatate fluticasone propionate/actuation nasal spray sulfacetamide sodium cetirizine sacubitril-valsartan lorazepam FAMILY HISTORY Grandfather - Myocardial infarction, Cancer, Hypertension, Ovarian cancer SOCIAL HISTORY Smoking Status: Never smoker alcohol intake: never substance use type: does not use REVIEW OF SYSTEMS General - Denies fever and weight loss. Has fatigue. Eyes - Denies cataracts. Has glaucoma. Has left eyebrow ptosis with lateral field of vision defect. ENT - Denies nasal congestion and sore throat. Endocrine - Denies excessive thirst and urination. Has thyroid disease. Has heat and cold intolerance. Skin - Denies skin cancer. Had lymphoma mass excised left lateral forehead by eyebrow in 07/05. Musculoskeletal - Has joint pain, joint stiffness, and back pain. Denies weakness of muscles and joints and arthritis. Neuro - Has headaches. Cardiovascular - Has chest pain and fatigue. Denies shortness of breath with exertion. Has pacemaker. Psych - Denies anxiety and depression. Respiratory - Denies chronic cough. Has shortness of breath. Gastrointestinal - Denies nausea, vomiting, diarrhea. Has constipation. Hematologic - Denies abnormal bruising and bleeding. Genitourinary - Denies hematuria. Has urinary frequency. PHYSICAL EXAMINATION General - Alert and Oriented. HEENT - PERRL. EOMI. Throat is clear. On the left lateral forehead by eyebrow is a healed incision. There is asymmetry between the right eyebrow and the left eyebrow. She can elevate her eyebrows but a little less on the left. There is mild left eyebrow ptosis. Neck - Supple and nontender. No cervical adenopathy. No suspicious lesions noted. Lungs - Clear to auscultation. Heart - Regular rate and rhythm. Abdomen - Soft and nondistended. Extremities - FROM. No axillary adenopathy. Radial pulses are palpable. No suspicious lesions noted. Neuro - CN II-XII grossly intact. Psych - Normal mood and affect. ASSESSMENT 1. Left eyebrow ptosis after excision lymphoma left lateral forehead by eyebrow in 07/05. 2. Left lateral field of vision defect. 3. Lymphoma. 4. Temporal branch left facial nerve paresis from excision lymphoma left lateral forehead by eyebrow. PLAN Patient has some burning nerve pain in the area of the left lateral forehead by eyebrow after excision of lymphoma mass in 07/05. Continue massage to help soften up the scarring and to help with the burning nerve pain. In the meantime, will write a script for Neurontin that she can take at night since she sometimes wakes up at night from the zingers. She has persistent left eyebrow ptosis and a lateral field of vision defect. She would benefit from a direct brow lift. I don't want to do a more extensive hairline brow lift because of her immunocompromised state from her lymphoma. She is done with her IV chemotherapy. She is currently on maintenance IV chemotherapy for the next 2 years. Will check with her Oncologist regarding timing for this surgery. Surgery will be done on an outpatient basis under local anesthesia and IV sedation. Patient was informed of the risks and complications of the procedure including alternatives to surgery. These were discussed with the patient personally. Patient voices understanding and wishes to proceed. Some of the risks and complications were included in a form from the [employer]. We discussed the current risks associated with COVID-19. While it is understood that there is a community spread of COVID-19, the risk of josé miguel COVID-19 while at [facility] ([facility]) is very low; however, the risk cannot be completely mitigated because of the community spread of the disease. We discussed in detail the risk of exposure to and/or potential harm posed by the COVID-19 virus with having a surgery/procedure at this time versus the risk of delaying the surgery/procedure. It is not possible to know either the risk of delaying the surgery or procedure or chance of getting an infection with perfect accuracy, but a joint decision was made to proceed at this time with the scheduled surgery/procedure as indicated on the consent form. Patient was notified that we will need to comply with any screening or testing [facility] wishes to perform or that surgery may be delayed for any positive results. Discussed with the patient that I was tested for COVID-19 on 02/16/20 which was negative and on 03/01/20 which was negative and on 03/15/20 which was negative and on 03/29/20 which was negative. My testing regimen at this time is to be COVID-19 tested every 2 weeks or so. I was recently tested on 04/12/20, and that test was negative. Procedure Criteria Procedure Type: Elective COVID Risk Discussion: The surgeon/proceduralist and patient have discussed in detail the risk of exposure to and/or potential harm posed by the COVID-19 virus with having a surgery/procedure at this time versus the risk of delaying the surgery/procedure. It is not possible to know either the risk of delaying the surgery or procedure or chance of getting an infection with perfect accuracy, but a joint decision was made between the patient and the surgeon/proceduralist to proceed at this time with the scheduled surgery/procedure as indicated on the consent form.
[2020-04-17] VITALS (9 sets, daily range): BP systolic 84–106; BP diastolic 32–69; PULSE 73–79; RESP 16; TEMP 36.1–36.8; O2SAT 93–98; BMI 31.9
[2020-04-17] MEDS: Lactated Ringers 1,000 ML 100 ML IV (07:02)
--- NOTE | 2020-04-17 07:30 | SOF_PTH ---
PATIENT: MIKKI MYLES LOC: [facility] – [place] U#:[id number] AGE/SX: 60/F ROOM: RE04/17/[address]: Dr. Randal Underwood MD : 1960 BED: DIS: 04/17/2020 SPEC #: [id number] RECD: 04/17/20 09:27 STATUS: JERRY JOSELYN #: [id number] SHAD: 04/17/20 07:[address]: Randal Underwood DEPT: SURGICAL PATHOLOGY RECD BY: Rafael Angelo ENTERED: 04/17/20 10:05 SP TYPE: SOFT TISS OTHR DR: Dr. Shashi Amaro, DO Tissues: Forehead, NOS Procedures: Surgery Specimen Level IV HEADER OPERATION: Supercillary brown lift PRE-OP DIAGNOSIS: Left eyebrow ptosis after excision lymphoma left lateral forehead by eyebrow; left lateral field of vision defect; lymphoma TISSUE SUBMITTED: Left forehead tissue by eyebrow MICROSCOPIC DIAGNOSIS Skin lesion, left forehead, biopsy: Actinic change and extensive solar elastosis. AM:alexa 04/18/20 MICROSCOPIC DESCRIPTION Slides are reviewed. GROSS DESCRIPTION Received in fixative is one container labeled with the patient's name and designated left forehead tissue by eyebrow. The specimen consists of a seaman-white skin ellipse measuring 4.2 x 0.7 cm and up to 0.3 cm in thickness. The specimen is inked, serially sectioned and submitted entirely in one cassette. / WENDY:alexa 04/17/20 TC:5 CPT: 62776
[2020-04-17] MEDS: Mupirocin Ointment 22gm Tube 1 APPLIC (08:13)
--- NOTE | 2020-04-17 08:27 | OP.PCM_ITS ---
Report of Operation Date of Procedure: 04/17/20 Pre-Operative Diagnosis: 1. Left eyebrow ptosis after excision lymphoma left lateral forehead by eyebrow in 07/05. 2. Left lateral field of vision defect. 3. Lymphoma. 4. Temporal branch left facial nerve paresis from excision lymphoma left lateral forehead by eyebrow. Post-Operative Diagnosis: Same. Surgery/Procedure Performed:: Direct excision left brow lift. Description of Surgical Findings:: 60 year old woman presents with persistent left eyebrow ptosis after excision of lymphoma mass on 06/24/19. She states she is having difficulties with lateral field of vision defect. She also experiences occasional zingers in the area of the surgery that occurs at night that can wake her up. She has finished her IV chemotherapy. She states she is on maintenance IV chemotherapy for the next 2 years. Patient was informed of the risks and complications of the procedure including alternatives to surgery. These were discussed with the patient personally. Patient voices understanding and wishes to proceed. Some of the risks and complications were included in a form from the [employer]. 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 Specimen's removed: Left lateral forehead by eyebrow tissue to Pathology. Drains: None. Estimated Blood Loss (mL): 5 ml. Description of Procedure: In the preop area, I marked out the amount of lift on the left eyebrow to elevate it just above the superior orbital rim and symmetrical with the opposite eyebrow at rest. The main lift will be at the line drawn down to the lateral aspect of the iris, about 2[address] the medial edge of the eyebrow. The amount of skin to be excised in this area is about 1 cm. Patient was taken to OR in supine position and was given IV sedation. The left face was prepped and draped in the usual fashion. SCD's were placed for DVT prophylaxis. Perioperative antibiotics were given intravenously. For the procedure, I wore an N95 mask and wore proper eyewear protection. Markings were made at the superior aspect of the left eyebrow and 1 cm above it at the highest point about 2[address] the medial edge of the eyebrow. The markings was infiltrated with xylocaine and epinephrine. After waiting 5 minutes for the anesthetic to take effect, I excised the skin at the superior edge of the eyebrow as a direct excision brow lift. I extended the excision down to the underlying muscle with care made to preserve the supraorbital and supratrochlear nerves. The tissue that was excised was sent to Pathology for analysis. Hemostasis was obtained with electrocautery. The wound was closed in a layered fashion with 5-0 Monocryl interrupted sutures for the deep dermis and subcutaneous tissue. The skin was approximated with 6-0 Prolene simple interrupted sutures. Good contouring of the eyebrow was noted with the apex of the eyebrow located 2[address] the medial edge of the eyebrow at the line drawn done to the lateral aspect of the iris. Antibiotic ointment was applied to the suture line followed by a small gauze dressing. Patient tolerated the procedure well and was sent to PACU in satisfactory condition. Patient will be sent home on antibiotics and pain medication. She will keep her head elevated during the initial postoperative period. Patient will followup in a week for a wound check and for discussion of the pathology report and for removal of the sutures. Grafts/Implants Used: None. - Complications None. - Admit VTE Documentation VTE Present on Admission: No VTE Mechan Device Prophylaxis: SCD's VTE Pharm Prophylaxis ordered?: No Surgery Charges CPT - 05185 ICD-10 - H57.812, H53.40, G51.0, C85.19
--- NOTE | 2020-04-17 08:37 | DCINST_ITS ---
You will use the following diet at home:: No restrictions Discharge Activity: May not drive while taking narcotic pain medications., May Shower - in two days., - - keep head elevated. no heavy lifting. May shower in (days): 2 May resume sexual activity in: No Restrictions Ice area for (Minutes): 5 - as needed for facial swelling. Weight Bearing Status: Weight bearing as tolerated Lifting Restrictions: 10 lbs. Keep extremity elevated above heart level: - - elevate head. Call your doctor if your incision/area has: Continuous Slow Oozing, Sudden Increased Bleeding, Increased Pain/ Swelling, Increased Redness, Foul Smelling Discharge, Swelling at the incision site Call your doctor if you observe: Fever of 101 or Higher, Coldness, Increased Pain, Shortness of breath, Chest pain, Calf discomfort, Uncontrolled pain Suture Line Care: - - apply antibiotic ointment to suture line daily. Remove Dressing in (days):: 2 Cleanse incision/area with: - - may get incision wet in the shower in two days. Allergies/Adverse Reactions: Allergies adhesive tape Allergy (Severe, Verified 04/10/20 08:16) Other leaves hernadez chcf, and pulls skin off. nickel Allergy (Severe, Verified 04/10/20 08:16) Rash codeine Allergy (Verified 04/10/20 08:16) Hives latex Allergy (Verified 04/10/20 08:16) Rash Medications to take at Discharge Multivitamins,Ther W-Minerals [Multivitamin With Minerals (BKC)] 1 tab PO DAILY 11/30/14 albuterol sulfate 1.25 mg/3 mL solution for nebulization 1.25 mg INHALATION Q4H PRN 12/29/17 magnesium 250 mg tablet 250 mg PO QDAY 02/10/18 baclofen 10 mg tablet 20 mg PO QHS tab 03/26/18 ondansetron HCl 8 mg tablet 8 mg PO TID PRN 02/16/19 spironolactone 25 mg tablet 12.5 mg PO .Three times a week #45 tab 03/09/19 polyethylene glycol 3350 17 gram/dose oral powder 8.5 g PO DAILY 04/22/19 pegfilgrastim 6 mg SC Q7D 09/02/19 albuterol sulfate 90 mcg/actuation aerosol inhaler 1 puff INHALATION Q6H PRN #18 g 09/13/19 furosemide 40 mg tablet 40 mg PO QDAY #90 tab 09/14/19 Benzonatate 100 mg PO TID PRN 03/05/20 Carvedilol 25 mg PO BID 03/05/20 Cetirizine HCl 10 mg PO DAILY PRN 03/05/20 Diclofenac Sodium [Voltaren] 2 g TOPICAL BID PRN 03/05/20 Fluticasone Propionate [Flonase Allergy Relief] 1 spray INTRANASAL BID PRN 03/05/20 Levothyroxine Sodium [Synthroid] 100 mcg PO DAILY 03/05/20 Pantoprazole Sodium 40 mg PO BID 03/05/20 Sacubitril/Valsartan 24/26 mg [Entresto 24 mg-26 mg Tablet] 1 tab PO BID 03/05/20 Vitamin B Complex 1 ea PO DAILY 03/05/20 lorazepam 1 mg tablet 1 mg PO Q6H PRN #120 tab 03/09/20 amitriptyline 50 mg tablet 50 mg PO QHS #90 tab 03/14/20 Ferrous Sulfate [Iron] 325 mg PO DAILY 04/10/20 Clindamycin HCl [Cleocin] 300 mg PO TID #12 cap 04/17/20 Lactobacillus Acidophilus/Fos [Acidophilus Probiotic Tablet] 1 ea PO BID #20 tab 04/17/20 Oxycodone HCl/Acetaminophen [Percocet 5/325] 1 tablet PO Q6H PRN PRN 5 Days #20 tablet 04/17/20 The following prescriptions were given: Lactobacillus Acidophilus/Fos [Acidophilus Probiotic Tablet] 1 ea PO BID #20 tab Transmission Status: Pending to [facility] [id number] [facility] Clindamycin HCl [Cleocin] 300 mg PO TID #12 cap Transmission Status: Pending to [facility] [id number] [facility] [employer] Oxycodone HCl/Acetaminophen [Percocet 5/325] 1 tablet PO Q6H PRN PRN 5 Days #20 tablet PRN Reason: Pain Score 6-10/10 Transmission Status: Received by [place] [id number] [facility] [employer] Primary Care Physician: Shashi Amaro DO [Primary Care Provider] - Test Results: Test results from this visit will be discussed in further detail at your follow- up appointment, if applicable. Please Follow Up With: Randal Underwood MD When: one week. call [phone] for appt. Proposed Discharge Date: 04/17/20
== END 2020-04-17 10:08 | disposition home or self-care (01) ==
LOC: SDC 06:01 → AC 06:02
PROVIDERS: Anesthesiology; PCP Family Medicine; Referring Provider Surgery; Visit Provider Surgery
PROC: (CPT 67900; principal; 2020-04-17 07:20)
DX: H57.812 Brow ptosis, left (principal); H53.40 Unspecified visual field defects; C85.19 Unspecified B-cell lymphoma, extranodal and solid organ sites; G51.0 Bell's palsy; Z11.59 Encounter for screening for other viral diseases; I42.8 Other cardiomyopathies; I11.0 Hypertensive heart disease with heart failure; I50.23 Acute on chronic systolic (congestive) heart failure; G62.9 Polyneuropathy, unspecified; K21.9 Gastro-esophageal reflux disease without esophagitis; E03.9 Hypothyroidism, unspecified; K58.9 Irritable bowel syndrome, unspecified; E66.9 Obesity, unspecified; F41.9 Anxiety disorder, unspecified; F32.9 Major depressive disorder, single episode, unspecified; Z78.0 Asymptomatic menopausal state; Z87.01 Personal history of pneumonia (recurrent); Z95.810 Presence of automatic (implantable) cardiac defibrillator; Z79.899 Other long term (current) drug therapy
CPT/HCPCS: 67900; 87635; 88305; 94799; J7120; A4216; J2405; U0003

== ENCOUNTER → 2020-09-11 12:02 | Outpatient (CLI) | payer MEDICARE, MEDICAID, SELFPAY ==
[2020-09-11 11:23] VITALS: BMI 31.4
[2020-09-11 13:33] LABS: Anion Gap 5 (5-15); BUN 20 mg/dL (7-18); BUN/Creat Ratio 19.6 RATIO (10-20); Calcium,Total 9.5 mg/dL (8.5-10.1); Chloride 100 mmol/L (98-107); Creatinine, Serum 1.02 mg/dL (0.55-1.02); EST Glomerular Filtration Rate 58 mL/min (>60); Est Glom Filt Rate - Afr Amer 71 mL/min (>60); Glucose 134 mg/dL (74-106); Magnesium 1.9 mg/dL (1.6-2.6); Sodium Level 137 mmol/L (136-145); Thyroid Stim Hormone (TSH) 1.09 uIU/mL (0.358-3.74)
== END ==
PROVIDERS: PCP Family Medicine; Referring Provider Physician Assistant Medical; Visit Provider Physician Assistant Medical
DX: I42.8 Other cardiomyopathies (principal); I10 Essential (primary) hypertension; F41.8 Other specified anxiety disorders
CPT/HCPCS: 36415; 80048; 83735; 84443

== ENCOUNTER → 2021-07-03 07:47 | Outpatient (CLI) | payer MEDICARE, MEDICAID, SELFPAY ==
--- NOTE | 2021-07-03 07:53 | ECHODONC_ITS ---
Reason For Study: Dyspnea/SOB Procedure This was a 2D Doppler, Color Flow transthoracic echocardiogram. Myocardial strain analysis was performed in this exam to aid in the assessment of cardiac function. Exam performed in department. Left Ventricle Normal LV size. Left ventricular systolic function is normal. The estimated ejection fraction is 55 %. No regional wall motion abnormalities noted. Right Ventricle Normal RV size. ICD or pacer leads identified within the right ventricle. Normal systolic function. Atria Normal left atrium. Normal right atrium. Mitral Valve Normal mitral valve. Tricuspid Valve Normal tricuspid valve. Mild tricuspid valve insufficiency. Pulmonary artery systolic pressure is 30 mmHg. Aortic Valve Normal aortic valve. Trisinus/trileaflet aortic valve. Pulmonic Valve Normal pulmonic valve. Mild (1+) pulmonic valve insufficiency. Great Vessels Normal aortic root. The pulmonary artery is normal size. Normal inferior vena cava. Pericardium/Pleural No pericardial effusion. MMode/2D Measurements & Calculations LVIDd: 5.1 cm IVSd: 0.95 cm LA dimension: 3.9 cm LVIDs: 3.4 cm LVPWd: 0.96 cm RVDd: 2.7 cm FS: 34.3 % LAV(MOD-bp): 32.7 ml LA A4 area: 14.2 cm2 RA A4 area: 9.6 cm2 LAV(MOD-bp) Indexed: 18.0 ml/m2 LAV(MOD-sp2): 31.0 ml LAV(MOD-sp4): 34.5 ml Time Measurements MV dec time: 0.32 sec Doppler Measurements & Calculations MV E max lei: 52.4 cm/sec Lat Peak E' Lei: 6.3 cm/sec Med Peak E' Lei: 6.1 cm/sec MV A max lei: 63.7 cm/sec E/E' lat: 8.4 E/E' med: 8.6 MV E/A: 0.82 MV V2 max: 78.1 cm/sec MV P1/2t max lei: 64.5 cm/sec Ao V2 max: 117.1 cm/sec MV max P.4 mmHg MV P1/2t: 125.8 msec Ao max P.5 mmHg MV V2 mean: 43.8 cm/sec MV dec slope: 150.2 cm/sec2 MV mean P.90 mmHg MVA(P1/2t): 1.7 cm2 MV V2 VTI: 28.1 cm LV V1 max: 110.4 cm/sec PA V2 max: 101.1 cm/sec TR max lei: 256.4 cm/sec LV V1 max P.9 mmHg TR max P.3 mmHg ECHO/ONC Echo Complete Interpretation Summary Normal LV size. Left ventricular systolic function is normal. The estimated ejection fraction is 55 %. Pulmonary artery systolic pressure is 30 mmHg. The global longitudinal strain is normal. The global longitudinal strain = -17. 3 % (normal). The global longitudinal strain has improved. Compared to previous study, the left v entricular systolic function has improved.. Ordering Physician: Babatunde Powers Referring Physician: Shashi Amaro Performed By: Kyle Amador RCS
== END ==
PROVIDERS: PCP Family Medicine; Referring Provider Internal Medicine Cardiovascular Disease; Visit Provider Internal Medicine Cardiovascular Disease
DX: I34.0 Nonrheumatic mitral (valve) insufficiency (principal)
CPT/HCPCS: 93306; 93356

== ENCOUNTER → 2021-12-25 | Outpatient (CLI) | payer MEDICARE, MEDICAID, SELFPAY | END | disposition home or self-care (01) | LOC: LABSPEC 11:43 | PROVIDERS: PCP Family Medicine; Referring Provider Family Medicine; Visit Provider Family Medicine | DX: R19.7 Diarrhea, unspecified (principal) | CPT/HCPCS: 87493 ==

== ENCOUNTER → 2022-02-11 | Outpatient (CLI) | payer MEDICARE, MEDICAID, SELFPAY ==
[2022-02-11 16:07] LABS: BNP,B-Type NATRIURETIC PEPTIDE 81.7 pg/mL (0-100)
== END | disposition home or self-care (01) ==
LOC: LAB 14:29
PROVIDERS: PCP Family Medicine; Visit Provider Physician Assistant Medical
DX: I42.8 Other cardiomyopathies (principal)
CPT/HCPCS: 36415; 83880

== ENCOUNTER → 2022-11-18 | Outpatient (CLI) | payer MEDICARE, MEDICAID, SELFPAY ==
[2022-11-18 12:53] LABS: T4 Free Direct 1.34 ng/dL (0.76-1.46); Thyroid Stim Hormone (TSH) 0.39 uIU/mL (0.358-3.74)
== END | disposition home or self-care (01) ==
LOC: BIMLAB 11:00
PROVIDERS: PCP Family Medicine; Referring Provider Family Medicine; Visit Provider Family Medicine
DX: I50.23 Acute on chronic systolic (congestive) heart failure (principal)
CPT/HCPCS: 36415; 84439; 84443

== ENCOUNTER → 2022-11-27 | Outpatient (CLI) | payer MEDICARE, MEDICAID, SELFPAY ==
[2022-11-27 15:58] LABS: Anion Gap 1 (5-15); BUN 18 mg/dL (7-18); Calcium,Total 9.5 mg/dL (8.5-10.1); Chloride 102 mmol/L (98-107); EST Glomerular Filtration Rate 59 mL/min (>60); Est Glom Filt Rate - Afr Amer 72 mL/min (>60); Glucose 165 mg/dL (74-106); Potassium 3.6 mmol/L (3.5-5.1); Sodium Level 137 mmol/L (136-145)
== END | disposition home or self-care (01) ==
PROVIDERS: PCP Family Medicine; Referring Provider Internal Medicine Hematology & Oncology; Visit Provider Internal Medicine Hematology & Oncology
DX: C82.98 Follicular lymphoma, unspecified, lymph nodes of multiple sites (principal); D80.1 Nonfamilial hypogammaglobulinemia
CPT/HCPCS: 80048

== ENCOUNTER → 2023-02-18 | Outpatient (CLI) | payer MEDICARE, MEDICAID, SELFPAY ==
[2023-02-18 13:39] LABS: Hemoglobin A1c 6.9 % (3.8-5.6)
== END | disposition home or self-care (01) ==
LOC: BIMLAB 10:48
PROVIDERS: PCP Family Medicine; Referring Provider Family Medicine; Visit Provider Family Medicine
DX: R73.01 Impaired fasting glucose (principal)
CPT/HCPCS: 36415; 83036

== ENCOUNTER → 2023-03-06 | Outpatient (CLI) | payer MEDICARE, MEDICAID, SELFPAY ==
--- NOTE | 2023-03-06 15:58 | STRESSREP ---
Stress Test Report Pharmacologic myocardial perfusion stress test. 62-year-old lady with a history of chest pain Resting EKG demonstrates sinus rhythm with a rate of 69 bpm. Resting blood pressure is 118/76 mmHg. 0.4 mg of regadenoson was infused per usual protocol followed by rapid intravenous saline flush injection. Continuous EKG monitoring was performed. The maximum heart rate was 96 bpm which was 61% of max impacted heart rate the maximum workload was 1 metabolic equivalent. At rest there were no ST or T wave changes noted to suggest ischemia and at peak infusion nonspecific ST changes were noted which did not meet the criteria for ischemia. No clinical angina is noted. The final blood pressure was 104/60 mmHg. Myocardial perfusion protocol. 11.6 mCi of technetium 99m sestamibi was injected at rest. 0.4 mg of regadenoson was infused per usual protocol. At peak infusion 33.8 mCi of technetium 99m sestamibi was injected stress images were obtained stress and rest images were reconstructed and compared in the short axis vertical long and horizontal long axis. Gated images were also obtained. Perfusion SPECT analysis: Review of the stress images demonstrate normal uptake of tracer noted in all areas of the myocardium. The resting images similar demonstrated normal uptake of tracer noted in all areas of the myocardium. No areas of reversibility are noted to suggest ischemia and no previous infarct is noted. Gated SPECT analysis: The gated ejection fraction is 70%. Conclusion: Normal pharmacologic myocardial perfusion stress test. Preserved ejection fraction.
== END | disposition home or self-care (01) ==
LOC: CVS 06:49
PROVIDERS: PCP Family Medicine; Referring Provider Internal Medicine Cardiovascular Disease; Visit Provider Internal Medicine Cardiovascular Disease
DX: R07.9 Chest pain, unspecified (principal)
CPT/HCPCS: 78452; 93017; A9500; A4216; J2785

== ENCOUNTER → 2023-10-19 | Outpatient (CLI) | payer MEDICARE, MEDICAID, SELFPAY | END | disposition home or self-care (01) | LOC: LABSPEC 14:53 | PROVIDERS: PCP Family Medicine; Visit Provider Nurse Practitioner | DX: R33.9 Retention of urine, unspecified (principal) | CPT/HCPCS: 87086 ==

== ENCOUNTER → 2023-12-01 | Outpatient (CLI) | payer MEDICARE, MEDICAID, SELFPAY ==
[2023-12-01 15:33] LABS: Anion Gap 6 (5-15); BUN 28 mg/dL (7-18); BUN/Creat Ratio 28.8 RATIO (10-20); Calcium,Total 9.8 mg/dL (8.5-10.1); Chloride 98 mmol/L (98-107); Creatinine, Serum 0.97 mg/dL (0.55-1.02); EST Glomerular Filtration Rate 61 mL/min (>60); Est Glom Filt Rate - Afr Amer 74 mL/min (>60); Glucose 233 mg/dL (74-106); Potassium 4.2 mmol/L (3.5-5.1); Sodium Level 134 mmol/L (136-145)
[2023-12-01 16:39] LABS: Hemoglobin A1c 7.1 % (3.8-5.6)
== END | disposition home or self-care (01) ==
LOC: BIMLAB 11:50
PROVIDERS: PCP Family Medicine; Visit Provider Family Medicine
DX: R73.01 Impaired fasting glucose (principal)
CPT/HCPCS: 36415; 80048; 83036

== ENCOUNTER → 2024-01-05 | Outpatient (CLI) | payer MEDICARE, MEDICAID, SELFPAY ==
--- NOTE | 2024-01-05 12:21 | BI_ITS ---
MAMMOGRAPHY - BILATERAL SCREENING 3-D TOMOSYNTHESIS REASON FOR EXAM: Female, 63 years old. SCREENING PERTINENT HISTORY: No significant family history. TECHNIQUE: 2-D mammograms and 3-D Tomosynthesis of the breast (s) were performed. CAD was performed. COMPARISON: 05/12/2016 FINDINGS: The breast composition is composed of scattered fibroglandular density. Scattered benign calcifications are seen. No dense spiculated masses or suspicious microcalcifications are identified. No architectural distortion is identified. There is no skin thickening or retraction. There has been no significant change since the prior study. BI/SCRN MAMM (CAD)W/SORAIDA BILAT IMPRESSION: No mammographic signs of malignancy. Routine yearly mammograms recommended. ASSESSMENT CATEGORY: BIRADS Category 1: Negative. A letter regarding these results will be sent to the patient by the facility within 30 days. FOLLOW UP RECOMMENDATION: Yearly follow up mammogram recommended. (A) Approximately 10% of breast cancers are not detected by mammography. A normal mammogram should not delay biopsy of a clinically suspicious abnormality. Electronically Signed: Eladio Whelan MD at 9:30 EDT ,
== END | disposition home or self-care (01) ==
LOC: OPBI 12:21
PROVIDERS: PCP Family Medicine; Referring Provider Family Medicine; Visit Provider Family Medicine
DX: Z12.31 Encounter for screening mammogram for malignant neoplasm of breast (principal)
CPT/HCPCS: 77063; 77067

== ENCOUNTER → 2024-01-21 | Outpatient (CLI) | payer MEDICARE, MEDICAID, SELFPAY ==
--- NOTE | 2024-01-21 13:38 | ECHOD_ITS ---
Version 2 Reason For Study: Auto Cardiac Defibrillator Procedure This was a 2D Doppler, Color Flow transthoracic echocardiogram. Myocardial strain analysis was performed in this exam to aid in the assessment of cardiac function. Exam performed in department. Left Ventricle Normal LV size. Left ventricular systolic function is normal. The estimated ejection fraction is 55 %. Stage 1 diastolic dysfunction. No regional wall motion abnormalities noted. Right Ventricle Normal RV size. ICD or pacer leads identified within the right ventricle. Normal systolic function. Atria Normal left atrium. Normal right atrium. Mitral Valve Normal mitral valve. Tricuspid Valve Normal tricuspid valve. Mild (1+) tricuspid valve insufficiency. Pulmonary artery systolic pressure is 36 mmHg. Aortic Valve Trisinus/trileaflet aortic valve. Pulmonic Valve Normal pulmonic valve. Great Vessels Normal aortic root. The pulmonary artery is normal size. Normal inferior vena cava. Pericardium/Pleural No pericardial effusion. MMode/2D Measurements & Calculations LVIDd: 4.8 cm IVSd: 0.86 cm Ao root diam: 2.8 cm LVIDs: 3.9 cm LVPWd: 0.88 cm LA dimension: 3.5 cm RVDd: 3.2 cm FS: 19.2 % LAV(MOD-bp): 27.4 ml LVAd ap4: 20.3 cm2 LVAd ap2: 22.6 cm2 LAV(MOD-bp) Indexed: 15.7 ml/m2 LVLd ap4: 6.4 cm LVLd ap2: 6.8 cm LAV(MOD-sp2): 30.3 ml EDV(MOD-sp4): 52.1 ml EDV(MOD-sp2): 64.3 ml LAV(MOD-sp4): 25.2 ml EDV(sp4-el): 54.8 ml EDV(sp2-el): 63.6 ml LVAs ap4: 12.8 cm2 LVAs ap2: 14.0 cm2 LVLs ap4: 5.7 cm LVLs ap2: 5.9 cm ESV(MOD-sp4): 25.3 ml ESV(MOD-sp2): 28.2 ml ESV(sp4-el): 24.4 ml ESV(sp2-el): 28.2 ml EF(MOD-sp4): 51.4 % EF(MOD-sp2): 56.1 % EF(sp4-el): 55.4 % SV(MOD-sp4): 26.8 ml SV(MOD-sp2): 36.1 ml SV(sp4-el): 30.3 ml TAPSE: 1.5 cm LA A4 area: 11.1 cm2 RA A4 area: 9.4 cm2 Time Measurements MV dec time: 0.25 sec Doppler Measurements & Calculations MV E max lei: 41.8 cm/sec Lat Peak E' Lei: 6.7 cm/sec Med Peak E' Lei: 5.2 cm/sec MV A max lei: 65.8 cm/sec E/E' lat: 6.2 E/E' med: 8.0 MV E/A: 0.63 MV V2 max: 73.4 cm/sec MV P1/2t max lei: 48.9 cm/sec Ao V2 max: 118.1 cm/sec MV max P.2 mmHg MV P1/2t: 88.6 msec Ao max P.6 mmHg MV V2 mean: 39.0 cm/sec MV dec slope: 161.6 cm/sec2 Ao V2 mean: 84.4 cm/sec MV mean P.72 mmHg Ao mean P.2 mmHg MV V2 VTI: 21.3 cm MVA(P1/2t): 2.5 cm2 Ao V2 VTI: 24.7 cm AV (velocity ratio): 0.82 LV V1 max: 98.7 cm/sec PA V2 max: 87.4 cm/sec TR max lei: 281.8 cm/sec LV V1 max P.9 mmHg PA max PG (full): 1.2 mmHg TR max P.8 mmHg LV V1 mean P.3 mmHg PA V2 mean: 56.4 cm/sec LV V1 mean: 72.7 cm/sec PA mean PG (full): 0.58 mmHg LV V1 VTI: 20.4 cm ECHO/Echo Complete Interpretation Summary Normal LV size. Left ventricular systolic function is normal. The estimated ejection fraction is 55 %. Stage 1 diastolic dysfunction. Pulmonary artery systolic pressure is 36 mmHg. The global longitudinal strain is mildly abnormal. The global longitudinal stra in = -16.7% (abnormal). Ordering Physician: Amee Lindsey Referring Physician: Amee Lindsey Performed By: Kyle Amador RCS
== END | disposition home or self-care (01) ==
PROVIDERS: PCP Family Medicine; Referring Provider Physician Assistant Medical; Visit Provider Physician Assistant Medical
DX: Z95.810 Presence of automatic (implantable) cardiac defibrillator (principal); I50.23 Acute on chronic systolic (congestive) heart failure; I42.8 Other cardiomyopathies
CPT/HCPCS: 93306

== ENCOUNTER 2024-02-02 17:02 | Outpatient (CLI) | payer MEDICARE, MEDICAID, SELFPAY ==
[2024-02-02 15:57] LABS: Bacteria 0 SEEN /hpf (None Seen); Mucous, Urine 0 SEEN /hpf (<or=2+); Red Blood Cells-Urine 0 SEEN /hpf (0-5)
[2024-02-02 17:15] LABS: Color, Urine Yellow (Yellow); Glucose, Dipstick Normal (Normal); Ketone-Dipstick Negative (Negative); Leukocyte Esterase-Dipstick 25 /ul (Negative); Nitrite-Dipstick Negative (Negative); Occult Blood-Urine Negative /ul (Negative); Protein-Dipstick Negative (Negative); Specific Gravity, Urine 1.005 (1.002-1.030); Urine Bilirubin Dipstick Negative (Negative); Urine Clarity Clear (Clear); Urine Urobilinogen Normal (Normal)
[2024-02-02 18:02] LABS: Squamous Epithelial Cells - UA 0-5 SEEN /hpf (5-10); White Blood Cells 0-5 SEEN /hpf (0-5)
== END 2024-02-02 23:59 | disposition home or self-care (01) ==
PROVIDERS: PCP Family Medicine; Visit Provider Nurse Practitioner
DX: N17.9 Acute kidney failure, unspecified (principal)
CPT/HCPCS: 81001

== ENCOUNTER → 2024-02-04 | Outpatient (CLI) | payer MEDICARE, MEDICAID, SELFPAY ==
[2024-02-04 15:34] LABS: Microalbumin,Random Urine 6.2 mg/L (NO RANGE EST.)
== END | disposition home or self-care (01) ==
PROVIDERS: Nurse Practitioner; PCP Family Medicine; Referring Provider Family Medicine; Visit Provider Family Medicine
DX: N17.9 Acute kidney failure, unspecified (principal)
CPT/HCPCS: 82043

== ENCOUNTER → 2024-02-11 | Outpatient (CLI) | payer MEDICARE, MEDICAID, SELFPAY ==
[2024-02-11 16:08] LABS: Anion Gap 6 (5-15); BUN 19 mg/dL (7-18); Calcium,Total 9.7 mg/dL (8.5-10.1); Chloride 101 mmol/L (98-107); Creatinine, Serum 0.95 mg/dL (0.55-1.02); EST Glomerular Filtration Rate 63 mL/min (>60); Est Glom Filt Rate - Afr Amer 76 mL/min (>60); Glucose 200 mg/dL (74-106); Potassium 3.6 mmol/L (3.5-5.1); Sodium Level 139 mmol/L (136-145)
== END | disposition home or self-care (01) ==
LOC: BIMLAB 12:00
PROVIDERS: PCP Family Medicine; Referring Provider Nurse Practitioner; Visit Provider Nurse Practitioner
DX: N17.9 Acute kidney failure, unspecified (principal)
CPT/HCPCS: 36415; 80048

== ENCOUNTER → 2024-12-27 | Outpatient (CLI) | payer MEDICARE, MEDICAID, SELFPAY ==
[2024-12-27 15:27] LABS: Absolute Lymphocyte Count 1.45 X10^3/uL (0.83-4.51); Absolute Neutrophil Count 4.8 X10^3/uL (2.0-7.7); Basophil# 0.04 X10^3/uL; Basophil% 0.6 % (0-1); Eosinophil# 0.17 X10^3/uL; Eosinophils% 2.4 % (0-5); Hematocrit 42.8 % (37-47); Hemoglobin 14.4 g/dL (12.0-15.0); Lymphocyte # 1.45 X10^3/ul (0.83-4.51); Lymphocyte % 20.5 % (19-41); Mean Corp Hgb Conc 33.6 g/dL (32-36); Mean Corpuscular Hgb 30.8 pg (27.0-32.0); Mean Corpuscular Volume 91.5 fL (81-99); Monocyte# 0.58 X10^3/uL; Monocyte% 8.2 % (0-10); NRBC Flagged by Analyzer 0 % (0-5); Neutrophil # 4.83 X10^3/uL (2.7-7.7); Platelet Count 244 K/mm3 (150-450); RBC Distribution Width CV 12.7 % (11.6-14.6); RBC Distribution Width SD 42.3 fl (35.1-43.9); Red Blood Count 4.68 M/mm3 (4.2-5.4); White Blood Count 7.1 K/mm3 (4.4-11.0)
[2024-12-27 15:50] LABS: Cholesterol 281 mg/dL (<=200); High Density Lipoprotein 40 mg/dL; Low Density Lipoprotein Calc. 185 mg/dL; Triglycerides 280 mg/dL; Very Low Density Lipoprotein 56 mg/dL (5-40); cholesterol:hdl ratio screen 7.04
== END | disposition home or self-care (01) ==
LOC: BIMLAB 12:03
PROVIDERS: PCP Family Medicine; Referring Provider Family Medicine; Visit Provider Family Medicine
DX: I42.8 Other cardiomyopathies (principal); E78.5 Hyperlipidemia, unspecified
CPT/HCPCS: 36415; 80061; 85025

== ENCOUNTER → 2025-01-13 | Outpatient (CLI) | payer MEDICARE, MEDICAID, SELFPAY ==
--- NOTE | 2025-01-13 13:30 | BI_ITS ---
EXAM: SCRN MAMM (CAD)W/SORAIDA BILAT DATE: 01/13/2025 CLINICAL HISTORY: F, Age 64 y/o , SCREENING BREAST CANCER RISK ASSESSMENT: Na TECHNIQUE: Bilateral screening digital breast tomosynthesis with 2D and 3D images. Computer aided detection. COMPARISON: Prior exam(s) were compared FINDINGS: TISSUE DENSITY: The breast tissue is almost entirely fatty. Bilateral Breast Mammographic Findings: No suspicious masses, calcifications or other abnormalities are identified. BI/SCRN MAMM (CAD)W/SORAIDA BILAT IMPRESSION: OVERALL FINAL ASSESSMENT: BIRADS 1 NEGATIVE RECOMMENDATION: Routine annual follow-up in 1 Year A letter with findings and recommendations will be mailed to the patient. Reading Location: [id number]
== END | disposition home or self-care (01) ==
LOC: OPBI 13:51
PROVIDERS: PCP Family Medicine; Referring Provider Family Medicine; Visit Provider Family Medicine
DX: Z12.31 Encounter for screening mammogram for malignant neoplasm of breast (principal)
CPT/HCPCS: 77063; 77067

== ENCOUNTER 2025-01-24 09:18 | Day surgery (SDC) | payer MEDICARE, MEDICAID, SELFPAY ==
[2025-01-19 14:36] LABS: Bacteria 0 SEEN /hpf (None Seen); Mucous, Urine 0 SEEN /hpf (<or=2+); Red Blood Cells-Urine 0 SEEN /hpf (0-5)
[2025-01-19 15:10] LABS: Hematocrit 40.3 % (37-47); Hemoglobin 13.7 g/dL (12.0-15.0); Mean Corpuscular Hgb 30.8 pg (27.0-32.0); Mean Corpuscular Volume 90.6 fL (81-99); Mean Platelet Vol. 10.5 fl (6.2-12.0); Platelet Count 209 K/mm3 (150-450); RBC Distribution Width SD 42.5 fl (35.1-43.9); Red Blood Count 4.45 M/mm3 (4.2-5.4)
[2025-01-19 15:59] LABS: Anion Gap 10 (5-15); BUN 18 mg/dL (4-19); BUN/Creat Ratio 19.4 RATIO (10-20); Calcium,Total 9.9 mg/dL (7.6-11.0); Carbon Dioxide 30.2 mmol/L (21.0-32.0); Chloride 101 mmol/L (98-108); Creatinine, Serum 0.94 mg/dL (0.70-1.20); EST Glomerular Filtration Rate 67 (>60); Glucose 108 mg/dL (70-99); Potassium 4.8 mmol/L (3.3-5.1); Sodium Level 141 mmol/L (133-145)
[2025-01-19 21:05] LABS: Color, Urine Straw (Yellow); Glucose, Dipstick Normal (Normal); Ketone-Dipstick Negative (Negative); Leukocyte Esterase-Dipstick 25 /ul (Negative); Nitrite-Dipstick Negative (Negative); Occult Blood-Urine Negative /ul (Negative); Protein-Dipstick 30 mg/dl (Negative); Specific Gravity, Urine 1.005 (1.002-1.030); Urine Bilirubin Dipstick Negative (Negative); Urine Clarity Clear (Clear); Urine Urobilinogen Normal (Normal)
[2025-01-19 22:14] LABS: Squamous Epithelial Cells - UA 0-5 SEEN /hpf (5-10); White Blood Cells 5-10 SEEN /hpf (0-5)
[2025-01-19 22:17] LABS: Transitional Epithelial - Ur 0-5 SEEN /hpf (0-5)
[2025-01-23 09:17] VITALS: BMI 28.0
--- NOTE | 2025-01-24 12:59 | EX.DEFIBPR_ITS ---
Defibrillator Procedure Note Defibrillator Procedure Note Candy Mancera is a 64 year old female who has a past medical history of an NICM s/p MANAGER STUDIO-D implant, who presented to the [place] EP lab for further evaluation regarding a generator changeout. The patient was brought to the electrophysiology laboratory in a fasting state. Sedation provided by nursing staff. The left shoulder area was prepped and draped in the usual manner and the skin and subcutaneous tissues below the leefft clavicle were infiltrated with 1% lidocaine for local anesthesia. The skin was sharply incised. Electrocautery and blunt dissection were carried out to the level of the pulse generator. The leads were disconnected from the pulse generator, and connecteed to a new pulse generator. The device was noted to function appropriately. The pocket was noted to have an absence of active bleeding. The pulse generator was placed in the pocket and sutured to the pre-pectoral fascia. The pocket was then irrigated with antibiotic solution. The incision was closed with two layers of 2-0 Vicryl and a subcuticular closure of 4-0 Vicryl. The incision was dressed with Aquacel. Conclusions Successful MANAGER STUDIO-D generator changeout with adequate pacing threshold, sensing and lead impedance. Recommendations 1. Routine follow-up in the device clinic. 2. Aquacell to remain on for 1 week. 3. Device follow up as scheduled. 4. Hold anticoagulation for 24 hours (No heparin IV or NOAC, ok to continue warfarin). 5. The patient can continue to follow-up with Dr. Powers.
== END 2025-01-24 14:00 | disposition home or self-care (01) ==
PROVIDERS: Internal Medicine Cardiovascular Disease; PCP Family Medicine; Referring Provider Internal Medicine; Visit Provider Internal Medicine
DX: I42.8 Other cardiomyopathies (principal); I11.0 Hypertensive heart disease with heart failure; I50.23 Acute on chronic systolic (congestive) heart failure; F41.9 Anxiety disorder, unspecified; F32.A Depression, unspecified; E03.9 Hypothyroidism, unspecified; K21.9 Gastro-esophageal reflux disease without esophagitis; K58.9 Irritable bowel syndrome, unspecified; Z79.899 Other long term (current) drug therapy; Z79.51 Long term (current) use of inhaled steroids; Z95.810 Presence of automatic (implantable) cardiac defibrillator
CPT/HCPCS: 33264; 36415; 80048; 81001; 85027; 99152; 99153